=== PATIENT | female | born 1950 | race Caucasian/White ===

== ENCOUNTER 2019-06-19 03:44 | Inpatient (IN) | payer BC, MEDICARE ==
[~2019-06-19] VITALS: Ht 157.5 cm; Wt 67.1 kg
[2019-06-19] MEDS ORDERED: FLECAINIDE ACE100 MG PO (03:54)
[2019-06-19 04:26] LABS: BASOPHILS 0.3 % (0-2); EOSINOPHILS 1.3 % (0-7); HEMATOCRIT 45.1 % (36.0-48.0); IMMATURE GRANULOCYTES 0.6 % (0-5); LYMPHOCYTES 11.3 % (15-50); MCH 31.4 pg (26.0-34.0); MCHC 33.3 g/dL (31.0-37.0); MCV 94.4 fL (80.0-100.0); MEAN PLATELET VOLUME 12.1 fL (7.4-10.4); MONOCYTES 7.2 % (2-11); NEUTROPHILS 79.3 % (40-80); PLATELET COUNT 206 10x3/uL (130-400); RBC 4.78 10x6/uL (4.00-5.40); WBC 7.7 10x3/uL (4.8-10.8)
--- NOTE | 2019-06-19 04:31 | NUR ---
PT AMBULATED TO RESTROOM INDEPENDENTLY.
[2019-06-19 04:54] LABS: ALBUMIN 3.4 g/dL (3.4-5.0); ALKALINE PHOSPHATASE 155 U/L (30-120); ALT (SGPT) 835 U/L (10-68); AMYLASE - SERUM 24 U/L (25-115); BILIRUBIN - TOTAL 1.46 mg/dL (0.2-1.3); CALC OSMOLALITY 287 mosm/kg (275-300); CALCIUM 9.2 mg/dL (8.5-10.1); CARBON DIOXIDE 27.7 mmol/L (21.0-32.0); CHLORIDE - SERUM 104 mmol/L (98-107); CREATININE - SERUM 0.9 mg/dL (0.6-1.3); GLUCOSE 167 mg/dL (74-106); LIPASE 142 U/L (73-393); POTASSIUM - SERUM 4.8 mmol/L (3.5-5.1); PROTEIN - SERUM 7.2 g/dL (6.4-8.2); SODIUM 141 mmol/L (136-145); UREA NITROGEN 21 mg/dL (7-18); eGFR NON AFRICAN AMERICAN 66 mL/min (90-120)
[2019-06-19 04:59] LABS: TROPONIN-I < 0.017 ng/mL (0.000-0.060)
--- NOTE | 2019-06-19 06:39 | NUR ---
PT AMBULATED TO RESTROOM INDEPENDENTLY.
[2019-06-19 06:44] LABS: BILIRUBIN NEGATIVE (NEGATIVE); GLUCOSE 100 mg/dL (NEGATIVE); KETONE NEGATIVE (NEGATIVE); NITRITE NEGATIVE (NEGATIVE); SPECIFIC GRAVITY 1.015 (1.005-1.020); UROBILINOGEN NORMAL (NORMAL)
[2019-06-19 06:45] LABS: AMORPHOUS SEDIMENT >1+ /lpf (NONE SEEN); BACTERIA FEW /hpf (NEGATIVE); EPITHELIAL CELLS 0-5 /hpf (0-5); RED CELLS - URINE 0-5 /hpf (0-5); WHITE CELLS - URINE 0-5 /hpf (NEGATIVE)
--- NOTE | 2019-06-19 07:12 | NUR ---
RECEIVED REPORT FROM WYATT NEWELL
--- NOTE | 2019-06-19 07:30 | NUR ---
BOLUS OF NS COMPLETE 1000 ML.
[2019-06-19 08:40] VITALS: BP 135/80
[2019-06-19 13:20] VITALS: BP 136/79
[2019-06-19 16:45] VITALS: BP 144/80
[2019-06-19 20:00] VITALS: BP 122/59
[2019-06-20] VITALS (14 sets, daily range): BP systolic 92–124; BP diastolic 45–72; Ht 157.5 cm; Wt 67.1 kg
[2019-06-20 05:40] LABS: BASOPHILS 0.5 % (0-2); HEMATOCRIT 39.6 % (36.0-48.0); HEMOGLOBIN 12.8 g/dL (12-16); IMMATURE GRANULOCYTES 0.2 % (0-5); LYMPHOCYTES 21.9 % (15-50); MCH 30.6 pg (26.0-34.0); MCHC 32.3 g/dL (31.0-37.0); MCV 94.7 fL (80.0-100.0); MEAN PLATELET VOLUME 10.1 fL (7.4-10.4); MONOCYTES 12.7 % (2-11); NEUTROPHILS 54.7 % (40-80); PLATELET COUNT 233 10x3/uL (130-400); RBC 4.18 10x6/uL (4.00-5.40); RDW 13.5 % (11.5-14.5); WBC 5.9 10x3/uL (4.8-10.8)
[2019-06-20 05:49] LABS: BILIRUBIN NEGATIVE (NEGATIVE); GLUCOSE NEGATIVE (NEGATIVE); KETONE NEGATIVE (NEGATIVE); NITRITE NEGATIVE (NEGATIVE); SPECIFIC GRAVITY 1.015 (1.005-1.020); UROBILINOGEN NORMAL (NORMAL)
[2019-06-20 05:54] LABS: BACTERIA FEW /hpf (NEGATIVE); EPITHELIAL CELLS 0-5 /hpf (0-5); RED CELLS - URINE 0-5 /hpf (0-5)
[2019-06-20 06:32] LABS: ANION GAP 11.7 mmol/L (8-16); BILIRUBIN - TOTAL 3.91 mg/dL (0.2-1.3); CARBON DIOXIDE 23.8 mmol/L (21.0-32.0); CREATININE - SERUM 0.9 mg/dL (0.6-1.3); POTASSIUM - SERUM 3.5 mmol/L (3.5-5.1); PROTEIN - SERUM 5.8 g/dL (6.4-8.2)
[2019-06-20 08:10] LABS: HEPATITIS C ANTIBODY <0.1 S/CO RAT (0.0-0.9)
--- NOTE | 2019-06-20 08:50 | NUR ---
SHE IS SLEEPING, NO C/O OF PAIN OR NAUSEA. WAITING TO HAVE SURGERY TODAY.
--- NOTE | 2019-06-20 11:29 | NUR ---
PEPCID AND REGLAN GIVEN IV PRE OP MEDICATIONS.
[2019-06-21 04:00] VITALS: BP 88/50
[2019-06-21 06:56] LABS: ANION GAP 13.2 mmol/L (8-16); CALCIUM 8.2 mg/dL (8.5-10.1); CARBON DIOXIDE 22.6 mmol/L (21.0-32.0); POTASSIUM - SERUM 3.8 mmol/L (3.5-5.1)
[2019-06-21 07:08] LABS: HEMATOCRIT 41.6 % (36.0-48.0); HEMOGLOBIN 13.7 g/dL (12-16); LYMPHOCYTES 16.7 % (15-50); MCHC 32.9 g/dL (31.0-37.0); MCV 94.1 fL (80.0-100.0); MEAN PLATELET VOLUME 9.6 fL (7.4-10.4); NEUTROPHILS 72.4 % (40-80); PLATELET COUNT 208 10x3/uL (130-400); RBC 4.42 10x6/uL (4.00-5.40); RDW 13.4 % (11.5-14.5)
[2019-06-21 07:09] LABS: WBC 10.1 10x3/uL (4.8-10.8)
[2019-06-21 08:55] LABS: ALBUMIN 3.1 g/dL (3.4-5.0); ANION GAP 13.4 mmol/L (8-16); BILIRUBIN - TOTAL 1.35 mg/dL (0.2-1.3); CALCIUM 8.4 mg/dL (8.5-10.1); CARBON DIOXIDE 24.5 mmol/L (21.0-32.0); POTASSIUM - SERUM 3.9 mmol/L (3.5-5.1); PROTEIN - SERUM 6.4 g/dL (6.4-8.2)
[2019-06-21 09:19] VITALS: BP 111/60
[2019-06-21] MEDS ORDERED: HYDROCODON-ACE1 EAC2 PO (10:33)
--- NOTE | 2019-06-21 11:45 | NUR ---
resting in bed, no distress noted, medicated for pain, cont to monitor, dressings to abd dry and intact, iv out, pt states that she may go home
[2019-06-21 12:43] VITALS: BP 125/71
--- NOTE | 2019-06-21 15:20 | NUR ---
REVIEWED DC ORDERS WITH PT, REQUESTED HER PERSONAL ITEMS THAT ARE LOCKED UP, INFORMED THAT SHE WILL NEED TO COME BACK SUNDAY AT 8 TO GET THOSE ITEMS, REFUSED TO SIGN DC PAPERS WHERE IT STATES THAT PT TOOK BELONGINGS,
--- NOTE | 2019-06-21 15:50 | NUR ---
TAKEN TO PRIVATE VEHICLE PER W/C, MARISELA WELL,
--- NOTE | 2019-06-24 16:49 | OP ---
PATIENT NAME: POLLY JIMENEZ MEDICAL RECORD: [id number] :52 LOCATION:[facility] ADMISSION DATE:06/19/19 SURGEON: KERWIN ANDERSON MD DATE OF OPERATION: 06/20/2019 PREOPERATIVE DIAGNOSES: 1. Gallstones. 2. Elevated liver function tests. 3. Chronic atrial fibrillation. POSTOPERATIVE DIAGNOSES: 1. Gallstones. 2. Elevated liver function tests. 3. Chronic atrial fibrillation. PROCEDURE: 1. Laparoscopic cholecystectomy with intraoperative cholangiogram. 2. Fluoroscopic interpretation. 3. Jamison-Cut liver biopsy. REPORT OF PROCEDURE: The patient's abdomen was prepped and draped in sterile fashion. A skin incision was made just above the umbilicus. A 0 Vicryls were placed in the fascia bilaterally and the fascia was incised with 15-blade. I then bluntly entered the peritoneal cavity and placed a 12-mm Negar port. Under direct visualization, a 5-mm trocar was placed in the epigastrium and two more 5-mm trocars were placed in the right subcostal region. The gallbladder was grasped and elevated. There were no signs of inflammatory changes and there are no signs of inflammatory adhesions. The cystic artery and cystic duct were dissected free. The cystic artery was clipped proximally and distally and ligated in standard fashion. The cystic duct was clipped proximally times 2 and a small opening was made in the cystic duct. A Cook cholangiocath was brought through the abdominal wall and placed into the distal cystic duct. Using fluoroscopic guidance, we were able to pass contrast through the common and hepatic ducts. The patient had good flow of contrast through a normal-appearing common bile duct out into the duodenum. There were no signs of any stones or filling defects. There was also good filling retrograde up into the patient's hepatic ducts. The cholangiocatheter was then removed. The cystic duct was clipped twice distally and ligated in standard fashion. The gallbladder was taken off the liver bed using electrocautery and placed into an Endo Catch bag. We then took biopsies with a Jamison-Cut 14-gauge biopsy tool from the right lobe of the liver. Any bleeding from these was treated with electrocautery. We irrigated out the right upper quadrant and assured there was no sign of any bleeding. At this point, the ports and insufflation were then removed and the gallbladder was taken out through the umbilicus. The umbilical fascia was closed with interrupted 0 Vicryls times 3. The wounds were then irrigated out with normal saline and infused with 10 mL of 0.25% Marcaine with epinephrine. The skin incisions were all closed with subcutaneous 5-0 Monocryl and dressed appropriately. COMPLICATIONS: None. CONDITION: Stable. ANESTHESIA: General endotracheal and local. OPERATIVE REPORT [id number] POLYL JIMENEZ BLOOD LOSS: 30 mL. TRANSINT:[id number] Voice Confirmation ID: [id number] DOCUMENT ID: [id number] KERWIN ANDERSON MD at 1649 CC: [id number] DICTATION DATE: 06/20/19 1244 SEWING SUPERVISOR: 06/20/19 1733 DIS IN 06/21/19 [facility] [address] [place] [address]
== END 2019-06-21 15:50 | disposition home or self-care (01) | DRG 418 ==
LOC: D.ER 03:44 → D.MS 07:27
PROVIDERS: Family Medicine; Surgery; ADMIT Internal Medicine Nephrology; ATTEND Internal Medicine Nephrology
PROC: 0FB14ZX Excision of Right Lobe Liver, Percutaneous Endoscopic Approach, Diagnostic (ICD-10-PCS; 2019-06-20)
PROC: BF101ZZ Fluoroscopy of Bile Ducts using Low Osmolar Contrast (ICD-10-PCS; 2019-06-20)
PROC: 0FT44ZZ Resection of Gallbladder, Percutaneous Endoscopic Approach (ICD-10-PCS; principal; 2019-06-20 09:30)
DX: K80.21 Calculus of gallbladder without cholecystitis with obstruction (principal); N17.9 Acute kidney failure, unspecified; I48.91 Unspecified atrial fibrillation; R79.89 Other specified abnormal findings of blood chemistry